=== PATIENT | male | born 1975 | race Caucasian/White ===

== ENCOUNTER 2019-12-15 16:13 | Inpatient (IN) | payer SELFPAY ==
[~2019-12-15] VITALS: Ht 170.2 cm; Wt 90.7 kg
[2019-12-15 16:35] VITALS: Ht 170.2 cm; Wt 90.7 kg
[2019-12-15 17:02] LABS: BASOPHIL % 0.8 % (0-2); PLATELET COUNT 323 x10^3mcL (130-400); RED CELL DISTRIBUTION WIDTH 12.9 % (11.5-14.5)
[2019-12-15 17:14] LABS: CALCIUM 9.2 mg/dL (8.5-10.1); CARBON DIOXIDE 30.4 mmol/L (21-32); CHLORIDE SERUM 103 mmol/L (98-107); GFR1 > 60 mL/min; GLUCOSE SERUM 92 mg/dL (74-106); POTASSIUM SERUM 3.8 mmol/L (3.5-5.1); SODIUM SERUM 141 mmol/L (136-145)
[2019-12-15 17:21] LABS: ALBUMIN 4.4 g/dL (3.4-5.0); ALKALINE PHOSPHATASE 100 U/L (46-116); ALT/SGPT 78 U/L (16-63); AST/SGOT 44 U/L (15-37); BILIRUBIN TOTAL 0.9 mg/dL (0.20-1.00); MAGNESIUM 2.2 mg/dL (1.8-2.4)
[2019-12-15 17:22] LABS: TOTAL PROTEIN, SERUM 8.4 g/dL (6.4-8.2)
[2019-12-15 19:16] LABS: microscopic required? NO
[2019-12-15 19:22] LABS: UA SPECIFIC GRAVITY 1.015 (1.005-1.035); urine erythrocyte NEGATIVE (NEGATIVE)
[2019-12-15 19:41] LABS: CHOLESTEROL/HDL RATIO 4.6
[2019-12-15 20:26] LABS: AMPHETAMINE QUAL UR NONE DETECTED (See below)
[2019-12-15 23:52] VITALS: BP 107/59
[2019-12-16 06:29] VITALS: BP 99/57
[2019-12-16 06:30] LABS: PLATELET COUNT 280 x10^3mcL (130-400); RED CELL DISTRIBUTION WIDTH 12.6 % (11.5-14.5)
[2019-12-16 06:47] LABS: BASOPHIL % 0 % (0-2)
[2019-12-16 07:04] LABS: CALCIUM 8.9 mg/dL (8.5-10.1); CHLORIDE SERUM 105 mmol/L (98-107); CREATININE SERUM 1.1 mg/dL (0.7-1.3); GFR1 > 60 mL/min; GLUCOSE SERUM 130 mg/dL (74-106); MAGNESIUM 2.1 mg/dL (1.8-2.4); PHOSPHOROUS 3.2 mg/dL (2.5-4.9); POTASSIUM SERUM 4.3 mmol/L (3.5-5.1); SODIUM SERUM 141 mmol/L (136-145)
[2019-12-16 08:36] LABS: ALBUMIN 3.5 g/dL (3.4-5.0); BILIRUBIN DIRECT 0.31 mg/dL (0.0-0.2); BILIRUBIN TOTAL 1.6 mg/dL (0.20-1.00); TOTAL PROTEIN, SERUM 7.2 g/dL (6.4-8.2)
[2019-12-16 08:44] VITALS: BP 99/54
[2019-12-16 12:45] VITALS: BP 94/47
[2019-12-16] MEDS ORDERED: APAP/HYDROCODON1 T13 PO (13:25)
[2019-12-16 17:00] VITALS: BP 94/57
[2019-12-16] MEDS ORDERED: KEFLEX500 M1 PO (19:04)
[2019-12-16 19:17] VITALS: BP 94/57
== END 2019-12-16 20:15 | disposition home or self-care (01) | DRG 854 ==
LOC: ED 16:13 → MU 18:52
PROVIDERS: Emergency Medicine; Surgery; ADMIT Internal Medicine
PROC: 0DTJ4ZZ Resection of Appendix, Percutaneous Endoscopic Approach (ICD-10-PCS; principal; 2019-12-15 20:30)
DX: A41.9 Sepsis, unspecified organism (principal); K35.80 Unspecified acute appendicitis; F17.210 Nicotine dependence, cigarettes, uncomplicated; E78.1 Pure hyperglyceridemia; R74.0 Nonspecific elevation of levels of transaminase and lactic acid dehydrogenase [LDH]; E66.9 Obesity, unspecified; F12.10 Cannabis abuse, uncomplicated; Z68.31 Body mass index [BMI] 31.0-31.9, adult; Z82.49 Family history of ischemic heart disease and other diseases of the circulatory system; Z83.3 Family history of diabetes mellitus
CPT/HCPCS: 94150; G0378; J0330; J2175; J2250; J2405; J2543; J2704; J2710; J3010; J3490; J7030; J7120